=== PATIENT | male | born 1985 | race Two or more races ===

== ENCOUNTER 2025-05-02 02:34 | Emergency (ER) | payer OTHER ==
[~2025-05-02] VITALS: Ht 177.8 cm; Wt 87.5 kg
[2025-05-02 02:54] VITALS: TEMP 99.4
[2025-05-02 03:27] VITALS: BP 146/97; O2SAT 97
== END 2025-05-02 03:57 | disposition home or self-care (01) ==
LOC: ER 02:39
DX: F41.9 Anxiety disorder, unspecified (principal); F17.200 Nicotine dependence, unspecified, uncomplicated; I10 Essential (primary) hypertension